=== PATIENT | male | born 1940 | race Caucasian/White ===

== ENCOUNTER 2024-04-05 08:53 | Emergency (ER) | payer OTHER, SELFPAY ==
[2024-04-05 08:57] VITALS: BP 144/74
--- NOTE | 2024-04-05 09:07 | ED.GENMED ---
History of Present Illness
<Cecilia De La Cruz PA-C - Last Filed: 04/05/24 17:53>
General
Chief Complaint: Musculo-Skeletal Complaint
Source: patient
Exam Limitations: none
Time Seen by Provider: 04/05/24 09:03
Nursing documentation reviewed up to this point in time: agreed with
History of Present Illness
History of Present Illness:
Patient is a 83 year old male presenting for evaluation of knee pain. Patient states that about a week ago he was moving heavy boxes in his office when he felt a pop in his right knee. Over the past week he has had pain in his right popliteal
region mostly with weightbearing and flexion in his right knee. This morning�patient states he was walking and heard a 'crunch 'and has had even more difficulty ambulating since. Patient has been taking Aleve and using ice/heat over the past week
without much improvement. Given persistence of symptoms and difficulty ambulating patient came to emergency department for further evaluation.
Patient denies any numbness/tingling in right lower extremity. Patient denies any weakness in right lower extremity. No fevers, chills.
Review of Systems
<Cecilia De La Cruz PA-C - Last Filed: 04/05/24 17:53>
Review of Systems
Allergies reviewed?: Yes
All Other Systems: ROS reviewed and negative except as documented in HPI and ROS
Phy Exam
<Cecilia De La Cruz PA-C - Last Filed: 04/05/24 17:53>
Physical Exam
Physical Exam:
Vitals: Patient's vital signs are stable. Afebrile
General: Patient is well appearing, no acute distress
Skin: Warm and dry, no rashes or lesions
Head: Normocephalic, atraumatic
Eyes: Sclera nonicteric. EOMs intact. No nystagmus.
Throat: Protecting airway
Neck: Normal ROM, no cervical spine tenderness, no meningismus
Cardiac: Regular rate and rhythm, no murmurs.
Pulm: Normal respiratory effort, no wheezes, rales, rhonchi heard on exam.
Abdomen: No abdominal tenderness.
Extremities: Pain in right popliteal with flexion of right knee. No medial or lateral joint line tenderness. No bony tenderness of right knee. No notable edema, erythema, or warmth of right knee. Full extension of right leg intact without pain. No
tenderness of calf. Negative anterior drawer. Negative carly sign of RLE. Great distal pulses in RLE. Sensation fully intact in RLE.
Neuro: AAOx3. CN II-XII intact. No focal neurologic deficits.
Psychiatric: Normal affect.
Course
<Cecilia De La Cruz PA-C - Last Filed: 04/05/24 17:53>
Orders/Labs/Results
Orders:
Orders
04/05/24 09:01
Knee, Right 4 or More Views [CR Knee- Right 4 Or More View*] Urgent
Comment:
Reason For Exam: injury
04/05/24 09:22
Acetaminophen [Tylenol] 650 mg PO NOW STA
04/05/24 09:23
Acetaminophen [Tylenol] 650 mg .ROUTE .STK-MED ONE
04/05/24 09:55
Crutches-Treatment ONCE
Knee Immobilizer Right-Treatme ONCE
Vital Signs
Initial and Last Documented VS:
Initial Vital Signs
Temp Pulse Resp BP Pulse Ox
98.5 F 57 16 144/74 98
04/05/24 08:57 04/05/24 08:57 04/05/24 08:57 04/05/24 08:57 04/05/24 08:57
Last Documented Vital Signs
Temp Pulse Resp BP Pulse Ox
98.5 F 57 16 144/74 98
04/05/24 08:57 04/05/24 08:57 04/05/24 08:57 04/05/24 08:57 04/05/24 08:57
<Alyx Kellogg DO - Last Filed: 04/05/24 10:06>
Orders/Labs/Results
Orders:
Orders
04/05/24 09:01
Knee, Right 4 or More Views [CR Knee- Right 4 Or More View*] Urgent
Comment:
Reason For Exam: injury
04/05/24 09:22
Acetaminophen [Tylenol] 650 mg PO NOW STA
04/05/24 09:23
Acetaminophen [Tylenol] 650 mg .ROUTE .STK-MED ONE
04/05/24 09:55
Crutches-Treatment ONCE
Knee Immobilizer Right-Treatme ONCE
Vital Signs
Initial and Last Documented VS:
Initial Vital Signs
Temp Pulse Resp BP Pulse Ox
98.5 F 57 16 144/74 98
04/05/24 08:57 04/05/24 08:57 04/05/24 08:57 04/05/24 08:57 04/05/24 08:57
Last Documented Vital Signs
Temp Pulse Resp BP Pulse Ox
98.5 F 57 16 144/74 98
04/05/24 08:57 04/05/24 08:57 04/05/24 08:57 04/05/24 08:57 04/05/24 08:57
<Cecilia De La Cruz PA-C - Last Filed: 04/05/24 17:53>
MDM/Problems Addressed
Differential Diagnosis Includes:
Not limited to: Sprain, meniscal injury, contusion, Oswald's cyst, arthritis, doubt fracture
MDM/Problems Addressed:
83-year-old male presenting with right knee pain. Patient initially noticed pain after moving heavy boxes and this morning felt a pop in his knee. He does have difficulty with ambulating. Patient's vital signs are stable. Physical exam as above.
He is well-appearing, in no apparent distress. He has no obvious swelling, warmth, redness of right knee. Do not suspect infectious process. He does have tenderness palpation in the right popliteal space and pain elicited with flexion of right
knee. He does have a supple range of motion of right knee. Sensation is fully intact in RLE. Great distal pulses in RLE. Quad tendon intact. X-ray was obtained which shows no acute fracture or dislocation, small joint effusion. High suspicion
for meniscal injury. Patient will be placed in knee immobilizer and discharged with crutches. He has appointment already scheduled for orthopedic this coming Sunday. He will follow-up then. Recommended ice, elevation, NSAIDs as needed. Return
precautions discussed with patient.
Chronic conditions affecting care:
N/A
Acute Exacerbation and/or Progression of Chronic Illness:
N/A
<Cecilia De La Cruz PA-C - Last Filed: 04/05/24 17:53>
*Radiology
Radiology exam reviewed: preliminary read by ED provider (No acute fracture or abnormality. ) and radiology read reviewed
*Pulse Oximetry
Patient hypoxic: no
*EKG
Interpreted by ED Provider?: NA
*Sleeping Car Porter Interpretation
Rate: Sleeping Car Porter- N/A
*Critical Care Note
Total Time (30-74mins, 75-104mins- exclusive of procedures): Not Applicable
ED Attending Note
<Cecilia De La Cruz PA-C - Last Filed: 04/05/24 17:53>
-
Portions of this chart may have been created with voice recognition software.� Occasional wrong word or��sound alike� substitutions may have occurred due to the inherent limitations of voice recognition software.
<Alyx Kellogg DO - Last Filed: 04/05/24 10:06>
ED Attending Note
Patient seen and examined by attending physician: Yes
I performed the substantive portion of visit, reviewed & personally made and approve the management plan that is documented in note by myself or CHARISSA.: Yes
I performed a history and physical exam of patient and discussed management with resident, I reviewed resident's note and agree with documented findings and plan of care.: Yes
ED Attending Note:
Patient seen and examined at bedside, 83-year-old male presenting with right knee pain. Patient had been moving boxes, felt a pop in the back of his knee with subsequent pain. Has since been having difficulty ambulating. Denies numbness or
tingling to the lower extremity. Denies weakness. Denies fever or redness. Vital signs within normal limits.
On exam, resting comfortably. Knee exam relatively benign without swelling or deformity. No tenderness to the anterior knee. Tenderness to the popliteal region. Pain elicited upon flexion, relieved with extension. Range of motion grossly
intact. No significant effusion. No erythema, no warmth. Distal sensation and pulses intact. Ultimately suspect meniscal injury. X-ray obtained, no fracture or malalignment, small effusion. Patient placed in knee immobilizer, crutches
provided. Plan for outpatient orthopedic follow-up. Patient has an appointment already scheduled for Sunday. Advised outpatient MRI imaging and continued supportive therapy. Return precautions discussed
Discharge Plan
Departure
Patient Disposition: Home (Routine Discharge)
Date of Disposition: 04/05/24
Time of Disposition: 10:00
Patient with high blood pressure during this ER visit?: No
Condition: Good
Covid-19: Not Applicable
Discharge Problem:
Knee pain, right
Instructions: Meniscal Tear (DC), Knee Pain ED
Referrals:
Jessica Garcia MD [Family Provider] -
Activity Restrictions/Additional Instructions:
RETURN TO THE EMERGENCY DEPARTMENT WITH ANY FEVERS, CHILLS, SEVERE PAIN OR SWELLING IN RIGHT KNEE, WORSENING IN CURRENT SYMPTOMS, OR ANY OTHER CONCERNS
-As discussed�you should remain nonweightbearing in the knee brace until you are seen by orthopedics. You should keep right leg elevated and apply ice. Take Tylenol and/or Motrin as needed.
-Follow-up with orthopedics with your scheduled appointment on 04/07/24. You may require further imaging.
Interventions
Interventions:
*Risk Screen - Suicide Last Done: 04/05/24 08:57
*General Assessment Last Done: 04/05/24 08:57
*Neglect/Abuse Screening Last Done: 04/05/24 08:57
*Nursing Disposition Last Done: 04/05/24 10:29
ED-Musculoskeletal Assessment Last Done: 04/05/24 09:38
Discharge Date and Time
Discharge Date/Time: 04/05/24 10:30
Print Language: BULGARIAN
[2024-04-05] MEDS: TYLENOL 650 MG PO (09:30)
== END 2024-04-05 10:30 | disposition home or self-care (01) ==
LOC: EMR 08:53
PROVIDERS: EMERGENCY PHYSICIAN Student in an Organized Health Care Education/Training Program; FAMILY PHYSICIAN Internal Medicine
DX: M25.561 Pain in right knee (principal); X50.0XXA Overexertion from strenuous movement or load, initial encounter
CPT/HCPCS: 99283; 29505; 73564

== ENCOUNTER → 2024-04-29 18:44 | Outpatient (REF) | payer OTHER, SELFPAY | LOC: MRI 3T 18:44 | PROVIDERS: ATTENDING PHYSICIAN Student in an Organized Health Care Education/Training Program; FAMILY PHYSICIAN Internal Medicine | DX: M25.561 Pain in right knee (principal) | CPT/HCPCS: 73721 ==

== ENCOUNTER 2024-05-16 10:09 | Day surgery (SDC) | payer OTHER, SELFPAY ==
--- NOTE | 2024-05-14 15:07 | PTCARENOTE ---
Patients 05/12 potassium 5.5- noted in phone encounter- Dr. Araujo notified BMP to be repeated AM of surgery
[2024-05-16] VITALS (7 sets, daily range): BP systolic 120–144; BP diastolic 63–84; BMI 26.6
[2024-05-16] MEDS: NORMOSOL-R 1000 IV (10:49)
[2024-05-16] MEDS: CELEBREX 200 MG PO (10:49)
[2024-05-16] MEDS: TYLENOL 1000 MG PO (10:49)
[2024-05-16 11:34] LABS: Blood Urea Nitrogen 15 mg/dl (9-20); Calcium 9.7 mg/dl (8.4-10.2); Carbon Dioxide 26 mmol/L (22-30); Chloride 103 mmol/L (98-107); Estimated Creatinine Clearance 58 ml/min; Glucose 99 mg/dl (70-99); Potassium 4.6 mmol/L (3.5-5.1); Sodium 136 mmol/L (135-145); eGFR > 60.00
[2024-05-16 13:47] LABS: Glucose - Point of Care 102 mg/dl (70-99)
== END 2024-05-16 15:09 | disposition home or self-care (01) ==
LOC: SDS 10:09
PROVIDERS: ATTENDING PHYSICIAN Specialist
DX: S83.241A Other tear of medial meniscus, current injury, right knee, initial encounter (principal); M22.41 Chondromalacia patellae, right knee; X58.XXXA Exposure to other specified factors, initial encounter
CPT/HCPCS: 29881; 80048; 82962

== ENCOUNTER → 2024-05-26 13:59 | Outpatient (REF) | payer OTHER, SELFPAY | LOC: RAD 13:59 | PROVIDERS: ATTENDING PHYSICIAN Physician Assistant; FAMILY PHYSICIAN Internal Medicine | DX: M79.89 Other specified soft tissue disorders (principal); M79.661 Pain in right lower leg | CPT/HCPCS: 93971 ==

== ENCOUNTER → 2024-12-21 10:31 | Outpatient (REF) | payer OTHER, SELFPAY | LOC: MRI 3T 10:31 | PROVIDERS: ATTENDING PHYSICIAN Orthopaedic Surgery Sports Medicine; FAMILY PHYSICIAN Internal Medicine | DX: M25.561 Pain in right knee (principal) | CPT/HCPCS: 73721 ==